=== PATIENT | female | born 1995 | race Caucasian/White ===

== ENCOUNTER → 2016-11-06 | Outpatient (CLI) | payer OTHER ==
--- NOTE | 2016-11-06 13:13 | XR ---
EXAM TYPE: LUMBAR SPINE X RAY SERIES COMPARISON: NONE HISTORY: Back pain TECHNIQUE: 3 views are submitted. FINDINGS: Alignment is anatomic. The pedicles are intact. The transverse processes are intact. There is no s orquidea listhesis. Spina bifida occulta of S1 IMPRESSION: 1. No acute process. If symptoms persist consider MRI.
== END | disposition home or self-care (01) ==
LOC: RADXRMAIN 12:47
PROVIDERS: ATTEND Emergency Medicine
DX: S39.012A Strain of muscle, fascia and tendon of lower back, initial encounter (principal)
CPT/HCPCS: 72100

== ENCOUNTER 2021-03-17 11:52 | Emergency (ER) | payer BC ==
[2021-03-17] MEDS ORDERED: SODIUM CHLORIDE 0.9% 1,000 ML IV STA (12:19)
[2021-03-17] MEDS ORDERED: diphenhydrAMINE 50 MG/ML 1 ML VIAL IVP STA (12:19)
[2021-03-17] MEDS ORDERED: METOCLOPRAMIDE 5 MG/ML 2 ML VIAL IVP STA (12:19)
--- NOTE | 2021-03-17 12:25 | ED ---
General Adult HPI - General Chief complaint: Neuro Symptoms/Deficit Stated complaint: L Arm Numbness, 37 wks preg Time Seen by Provider: 03/17/21 12:00 Source: patient, EMS Mode of arrival: EMS Limitations: no limitations - History of Present Illness Initial comments: Dictation was produced using [employer] dictation software. please excuse any grammatical, word or spelling errors. Chief Complaint: 25-year-old female presents with episode of headache, vision changes. History of Present Illness: Patient 25-year-old female presents to the emergency department for episode of headache and vision changes. Patient reports that she is 37 weeks . States that her symptoms last for several minutes. First began with partial lateral hemianopsia of the left eye. She states that the lateral half of her left eye vision became intermittently blackened fuzzy. Patient states she has history of migraines. She typically gets visual halos prior to headaches states that currently after she started to feel some paresthesias to her left hand. Symptoms last for several minutes however resolved on its own. After she had developed a right-sided headache. States her headaches are similar to headache she is having the past. She denies any headaches worse headache of her life. She is been having a normal thus far. 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 Denies any numbness and paresthesias of the extremities currently. The ROS documented in this emergency department record has been reviewed and confirmed by me. Those systems with pertinent positive or negative responses have been documented in the HPI. All other systems are other negative and/or noncontributory. PHYSICAL EXAM: General Impression: Alert and oriented x3, not in acute distress HEENT: Normocephalic atraumatic, extra-ocular movements intact, pupils equal and reactive to light bilaterally, mucous membranes moist. Cardiovascular: Heart regular rate and rhythm Chest: Able to complete full sentences, no retractions, no tachypnea Abdomen: abdomen soft, non-tender, non-distended, no organomegaly Musculoskeletal: Pulses present and equal in all extremities, no peripheral edema Motor: no focal deficits noted Neurological: CN II-XII grossly intact, no focal motor or sensory deficits noted Skin: Intact with no visualized rashes Psych: Normal affect and mood ED course: 25-year-old female with past medical history of migraines presents to the emergency department for episode of vision changes, headache and left arm paresthesias. Vital signs upon arrival are within acceptable limits. Patient is not hypertensive. Patient is well-appearing at bedside. No concern for eclampsia or preeclampsia. Physical examination is benign. Patient is well- appearing. per patient does not have any pelvic complaint at this time. Reevaluated at bedside with complete resolution of headache symptoms. She is well-appearing. Blood pressures were monitored and were stable. Patient will be discharged. Return precautions discussed. Patient agreeable to plan. - Related Data Home Medications Medication Instructions Recorded Confirmed No Known Home Medications 03/17/21 03/17/21 Allergies Allergy/AdvReac Type Severity Reaction Status Date / Time cefaclor [From Ceclor] Allergy Rash/Hives Verified 03/17/21 12:15 Sulfa (Sulfonamide Allergy Rash/Hives Verified 03/17/21 12:15 Antibiotics) Review of Systems ROS Statement: Those systems with pertinent positive or pertinent negative responses have been documented in the HPI. ROS Other: All systems not noted in ROS Statement are negative. Past Medical History Additional Past Medical History / Comment(s): sepsis History of Any Multi-Drug Resistant Organisms: None Reported Past Surgical History: Adenoidectomy, Tonsillectomy Past Psychological History: No Psychological Hx Reported Smoking Status: Never smoker Past Alcohol Use History: None Reported Past Drug Use History: None Reported General Exam Limitations: no limitations Course Vital Signs 03/17/21 03/17/21 03/17/21 12:03 12:30 12:45 Temperature 98.9 F Pulse Rate 66 75 67 Respiratory 18 18 20 Rate Blood Pressure 122/84 114/84 120/70 O2 Sat by Pulse 96 98 98 Oximetry 03/17/21 03/17/21 13:00 13:31 Temperature Pulse Rate 77 75 Respiratory 18 18 Rate Blood Pressure 119/68 115/45 O2 Sat by Pulse 98 99 Oximetry Disposition Clinical Impression: Headache Disposition: HOME SELF-CARE Condition: Good Instructions (If sedation given, give patient instructions): Acute Headache (ED) Is patient prescribed a controlled substance at d/c from ED?: No Referrals: Ilana Dejesus MD [Primary Care Provider] - 1-2 days
[2021-03-17 13:55] VITALS: BP 120/65; PULSE 70; RESP 16; TEMP 98.1
== END 2021-03-17 13:50 | disposition home or self-care (01) ==
LOC: EC 11:52
DX: O26.893 Other specified pregnancy related conditions, third trimester (principal); R51.9 Headache, unspecified; Z3A.37 37 weeks gestation of pregnancy; Z88.1 Allergy status to other antibiotic agents; Z88.2 Allergy status to sulfonamides
CPT/HCPCS: 99283 ×2; 96374 ×2; 96375 ×2; 96361 ×2; J1200; J2765